=== PATIENT | female | born 1975 | race Caucasian/White ===

== ENCOUNTER 2018-07-02 13:36 | Outpatient (CLI) | payer OTHER | END 2018-07-02 14:00 | disposition home or self-care (01) | LOC: MAMO-SONO 13:36 | DX: N60.11 Diffuse cystic mastopathy of right breast (principal); N60.12 Diffuse cystic mastopathy of left breast ==

== ENCOUNTER 2018-07-03 11:42 | Outpatient (CLI) | payer OTHER | END 2018-07-03 12:00 | disposition home or self-care (01) | LOC: SONOGRAMA 11:42 | DX: N60.11 Diffuse cystic mastopathy of right breast (principal); N60.12 Diffuse cystic mastopathy of left breast; N63.11 Unspecified lump in the right breast, upper outer quadrant ==

== ENCOUNTER 2018-08-17 06:36 | Day surgery (SDC) | payer OTHER ==
[~2018-08-17] VITALS: Ht 167.6 cm; Wt 65.8 kg
== END 2018-08-18 08:00 | disposition home or self-care (01) ==
LOC: CIR.AMB 06:36 → O/R 19:53 → CIR.AMB 19:53 → SURH 19:53 → CIR.AMB 08-18 08:00 → O/R 08-18 13:59 → SURH 08-18 13:59
DX: C50.411 Malignant neoplasm of upper-outer quadrant of right female breast (principal); Z90.10 Acquired absence of unspecified breast and nipple; N60.11 Diffuse cystic mastopathy of right breast

== ENCOUNTER 2018-10-02 06:00 | Day surgery (SDC) | payer OTHER ==
[~2018-10-02 06:00] MED LIST: TAMOXIFEN CITRA10 MG PO
== END 2018-10-02 12:24 | disposition home or self-care (01) ==
LOC: CIR.AMB 06:00
PROVIDERS: Plastic Surgery
PROC: 0HRV0JZ Replacement of Bilateral Breast with Synthetic Substitute, Open Approach (ICD-10-PCS; 2018-10-02)
PROC: 0H0V07Z Alteration of Bilateral Breast with Autologous Tissue Substitute, Open Approach (ICD-10-PCS; 2018-10-02)
PROC: 0HPT0JZ Removal of Synthetic Substitute from Right Breast, Open Approach (ICD-10-PCS; principal; 2018-10-02 07:00)
DX: N65.1 Disproportion of reconstructed breast (principal); N64.82 Hypoplasia of breast; Z90.11 Acquired absence of right breast and nipple
CPT/HCPCS: 19330; 19342; 19366; 19325; C1789

== ENCOUNTER 2019-05-31 09:07 | Outpatient (CLI) | payer OTHER | END 2019-05-31 09:11 | disposition home or self-care (01) | LOC: MAMO-SONO 09:07 | DX: Z12.31 Encounter for screening mammogram for malignant neoplasm of breast (principal); C50.411 Malignant neoplasm of upper-outer quadrant of right female breast; N60.11 Diffuse cystic mastopathy of right breast; N60.12 Diffuse cystic mastopathy of left breast ==

== ENCOUNTER 2020-03-17 14:44 | Outpatient (CLI) | payer OTHER | END 2020-03-17 14:58 | disposition HB | LOC: MAMO-SONO 14:44 | DX: N60.02 Solitary cyst of left breast (principal); C50.411 Malignant neoplasm of upper-outer quadrant of right female breast; N64.59 Other signs and symptoms in breast ==

== ENCOUNTER 2021-04-04 12:13 | Outpatient (CLI) | payer OTHER | END 2021-04-04 13:49 | disposition home or self-care (01) | LOC: MAMO-SONO 12:13 | PROVIDERS: ATTEND Surgery | DX: N60.11 Diffuse cystic mastopathy of right breast (principal); N60.12 Diffuse cystic mastopathy of left breast; C50.411 Malignant neoplasm of upper-outer quadrant of right female breast ==

== ENCOUNTER 2022-04-08 10:05 | Outpatient (CLI) | payer OTHER | END 2022-04-08 10:18 | disposition home or self-care (01) | LOC: MAMO-SONO 10:05 | PROVIDERS: ATTEND Internal Medicine | DX: C50.411 Malignant neoplasm of upper-outer quadrant of right female breast (principal) ==

== ENCOUNTER 2023-04-25 10:55 | Outpatient (CLI) | payer OTHER | END 2023-04-25 11:07 | disposition home or self-care (01) | LOC: MAMO-SONO 10:55 | PROVIDERS: ATTEND Obstetrics & Gynecology Gynecology | DX: N60.11 Diffuse cystic mastopathy of right breast (principal); N60.12 Diffuse cystic mastopathy of left breast; Z85.3 Personal history of malignant neoplasm of breast ==